=== PATIENT | male | born 1965 | race Caucasian/White ===

== ENCOUNTER 2020-06-21 10:57 | Emergency (ER) | payer OTHER ==
[~2020-06-21] VITALS: Ht 185.4 cm; Wt 99.0 kg
--- NOTE | 2020-06-21 11:12 | PHYS DOC ---
Past History Past Medical History: Hypertension Adult General Chief Complaint Chief Complaint: FLANK PAIN HPI HPI Patient is a 55-year-old male who presents with right-sided abdominal pain. Onset was this morning shortly after waking up without any known inciting event or trauma. Denies any recent travel or ingestion. Nothing known makes better, certain twisting movements of his torso and direct palpation make worse. Pain is sharp and focal to his right side of abdomen with mild radiation into lower right quadrant. Timing of symptoms has been constant, currently rates the pain 8/10 in severity. No fever, no COVID-19 contact, denies any chest pain, shortness of breath, cough, nausea vomit diarrhea, no history of constipation, no changes in bladder or bowel function, no changes in motor or sensory function. Patient denies any previous abdominal surgeries Review of Systems Review of Systems Fourteen body systems of review of systems have been reviewed. See HPI for pertinent positives and negative responses, other johnson all other systems are negative, non-pertinent or non-contributory Physical Exam Physical Exam Constitutional: Well developed, well nourished, no acute distress, non-toxic appearance. HENT: Normocephalic, atraumatic, bilateral external ears normal, oropharynx moist, no oral exudates, nose normal. Eyes: PERRLA, EOMI, conjunctiva normal, no discharge. Neck: Normal range of motion, no tenderness, supple, no stridor. Cardiovascular: Heart rate regular, sinus rhythm, no murmurs rubs or gallops Lungs & Thorax: Bilateral breath sounds clear to auscultation Abdomen: Bowel sounds normal, soft, tenderness to palpation of right lower quadrant. Negative Fofana sign, positive McBurney point, no masses, no pulsatile masses. Patient has voluntary guarding without rebound Skin: Warm, dry, no erythema, no rash. Back: No tenderness, right CVA tenderness Extremities: No tenderness, no cyanosis, no clubbing, ROM intact, no edema. Neurologic: Alert and oriented X 3, grossly normal motor & sensory function, no focal deficits noted. Psychologic: Affect normal, judgement normal, mood normal. Current Patient Data Vital Signs Vital Signs Date Time Temp Pulse Resp B/P (MAP) Pulse Ox O2 Delivery O2 Flow Rate FiO2 06/21/20 13:54 22 97 06/21/20 13:14 18 97 Room Air 1/6/21 13:13 98 136/86 06/21/20 13:09 89 18 136/86 (103) 98 Room Air 06/21/20 11:09 97.7 108 22 125/98 (107) 98 Lab Results Laboratory Tests Test 06/21/20 11:11 06/21/20 11:35 Urine Collection Type Unknown Urine Color Yellow Urine Clarity Clear Urine pH 5.0 Urine Specific [place] 1.020 Urine Protein Neg Urine Glucose (UA) Neg mg/dL Urine Ketones (Stick) Neg mg/dL Urine Blood Neg Urine Nitrite Neg Urine Bilirubin Neg Urine Urobilinogen Dipstick 0.2 mg/dL Urine Leukocyte Esterase Neg Urine RBC Occ /HPF Urine WBC Occ /HPF Urine Squamous Epithelial Cells Few /LPF Urine Bacteria Few /HPF White Blood Count 9.7 x10^3/uL Red Blood Count 5.38 x10^6/uL Hemoglobin 15.7 g/dL Hematocrit 45.8 % Mean Corpuscular Volume 85 fL Mean Corpuscular Hemoglobin 29 pg Mean Corpuscular Hemoglobin Concent 34 g/dL Red Cell Distribution Width 13.2 % Platelet Count 267 x10^3/uL Neutrophils (%) (Auto) 76 % Lymphocytes (%) (Auto) 13 % Monocytes (%) (Auto) 8 % Eosinophils (%) (Auto) 2 % Basophils (%) (Auto) 1 % Neutrophils # (Auto) 7.3 x10^3uL Lymphocytes # (Auto) 1.3 x10^3/uL Monocytes # (Auto) 0.8 x10^3/uL Eosinophils # (Auto) 0.2 x10^3/uL Basophils # (Auto) 0.1 x10^3/uL Sodium Level 138 mmol/L Potassium Level 4.0 mmol/L Chloride Level 103 mmol/L Carbon Dioxide Level 24 mmol/L Anion Gap 11 Blood Urea Nitrogen 12 mg/dL Creatinine 1.0 mg/dL Estimated GFR (Cockcroft-Gault) 77.9 BUN/Creatinine Ratio 12 Glucose Level 134 mg/dL Calcium Level 8.8 mg/dL Total Bilirubin 0.5 mg/dL Aspartate Amino Transf (AST/SGOT) 20 U/L Alanine Aminotransferase (ALT/SGPT) 55 U/L Alkaline Phosphatase 59 U/L Troponin I Quantitative < 0.017 ng/mL Total Protein 7.7 g/dL Albumin 3.8 g/dL Albumin/Globulin Ratio 1.0 Lipase 177 U/L Current Medications Medications (Trade) Dose Ordered Sig/Brook Route PRN Reason Start Time Stop Time Status Last Admin Dose Admin Morphine Sulfate (Morphine 4mg Syringe) 4 mg 1X ONCE IV 06/21/20 12:30 06/21/20 12:31 DC 06/21/20 13:14 Iohexol (Omnipaque 300 Mg/ml) 75 ml 1X ONCE IV 06/21/20 12:30 06/21/20 12:31 DC 06/21/20 12:36 Info (Do NOT chart on this entry -- for MONITORING) 1 each PRN DAILY PRN MC SEE COMMENTS 06/21/20 12:30 06/23/20 12:29 Hydralazine HCl (Apresoline) 10 mg 1X ONCE IV 06/21/20 12:45 06/21/20 12:59 DC 06/21/20 13:13 Morphine Sulfate (Morphine 4mg Syringe) 4 mg 1X ONCE IV 06/21/20 12:45 06/21/20 12:59 DC 06/21/20 13:54 EKG EKG EKG ordered and interpreted by myself at 1300 hrs. as sinus rhythm at 94 bpm, unremarkable intervals, no axis deviation, findings in inferior leads II, III and aVF consistent with Q waves from prior infarct no acute ischemic findings, no STEMI Radiology/Procedures Radiology/Procedures EXAM: Chest, single view. HISTORY: Flank pain. COMPARISON: None. FINDINGS: A frontal view of the chest is obtained. There is no infiltrate, pleural effusion or pneumothorax. The heart is normal in size. There is cervical spinal fusion instrumentation. There is a right shoulder arthroplasty and evidence of prior distal right clavicular resection. IMPRESSION: No acute pulmonary finding. Electronically signed by: Jessica Oneal MD (06/21/2020 12:59 PM) [id number] EXAM: Abdomen and pelvis CT with intravenous contrast. HISTORY: Right flank pain. TECHNIQUE: Computed tomographic images of the abdomen and pelvis were obtained following the administration of intravenous contrast. Multiplanar reformatting was performed. *One or more of the following individualized dose reduction techniques were utilized for this examination: 1. Automated exposure control. 2. Adjustment of the mA and/or kV according to patient size. 3. Use of iterative reconstruction technique. COMPARISON: None. FINDINGS: Evaluation of the lower thorax demonstrates no infiltrate, pleural effusion or pulmonary nodule. There are a few hepatic granulomas. There is a small focus of nodularity along the anterior left hepatic capsule, benign in appearance. The gallbladder, pancreas and adrenal glands are unremarkable there are splenic granulomas. The stomach is unremarkable. There is a punctate nonobstructing stone within the lower mid zone of the left kidney. There is no hydronephrosis. No suspicious renal lesion is seen. The bladder is unremarkable. There is a dilated appendix with surrounding stranding and trace fluid consistent with acute appendicitis. There is a superimposed appendicolith. No drainable fluid collection or free air is seen. The aorta is normal in caliber. There is no lymphadenopathy. There is degenerative change involving the lower thoracic spine. There are few endplate Schmorl's nodes. There is a suspected bone island within the anterior aspect of T11. IMPRESSION: 1. Acute appendicitis. No drainable abscess or free air is seen. 2. Punctate nonobstructing left renal stone. Electronically signed by: Jessica Oneal MD (06/21/2020 12:58 PM) [id number] Heart Score HEART Score for Chest Pain: HEART Score for Chest Pain Response (Comments) Value History Slighlty/Non-Suspicious 0 ECG Normal 0 Age >45 - < 65 1 Risk Factors 1 or 2 Risk Factors 1 Troponin < Normal Limit 0 Total 2 Risk Factors: Risk Factors: DM, Current or recent (<one month) smoker, HTN, HLP, family history of CAD, obesity. Risk Scores: Risk Factors: DM, Current or recent (<one month) smoker, HTN, HLP, family history of CAD, obesity. Course & Med Decision Making Course & Med Decision Making Pertinent Labs and Imaging studies reviewed. (See chart for details) Discussed most likely diagnosis of acute appendicitis. I discussed need for transfer to facility with surgery capabilities I called [facility] and discussed case with Dr. Dumont who agreed need for transfer for surgical removal. I also talked to hospitalist, Dr. Barillas, who agreed to accept patient under his care at [facility] I updated patient on proposed plan of care for transfer, admission for continued pain control, IV antibiotics and plan for surgical removal of his appendix tomorrow morning. Patient was agreeable Patient stabilized satisfactorily. All questions and concerns addressed prior to ER transportation to [facility] Critical Care Time This patient required critical care. Due to the fact that the patient required a significant amount of one on one physician - patient contact time, ordering and review of studies, arranging urgent treatment with development of a management plan, evaluation of patients response to treatment with frequent reassessments, and discussions with other providers this patient required critical care time in excess of 30 minutes. Critical care time was indicated due to the inherent instability and/or potential for instability in this patient. The critical care time that is allocated to this patient is above and beyond any time spent on any other billable procedures performed on this patient. Dragon Disclaimer Dragon Disclaimer This electronic medical record was generated, in whole or in part, using a voice recognition dictation system. Departure Departure: Impression: Primary Impression: Appendicitis Disposition: 02 DC/TRF OTHER SHORT TERM HOS ([facility]) Admitting Physician: Other (DR BARILLAS) Condition: STABLE Referrals: JEEVAN AGUIRRE MD (PCP) GILDA PATEL DO Jun 21, 2020 11:12
[2020-06-21 11:59] LABS: BASO # 0.1 x10^3/uL (0.0-0.2); BASO % 1 % (0-3); EOS # 0.2 x10^3/uL (0.0-0.7); EOS % 2 % (0-3); HEMATOCRIT 45.8 % (39.0-53.0); HEMOGLOBIN 15.7 g/dL (13.0-17.5); LYMPH # 1.3 x10^3/uL (1.0-4.8); LYMPH % 13 % (24-48); MEAN CORPUSCULAR HEMOGLOBIN 29 pg (25-35); MEAN CORPUSCULAR HGB CONC 34 g/dL (31-37); MEAN CORPUSCULAR VOLUME 85 fL (79-100); MONO # 0.8 x10^3/uL (0.0-1.1); MONO % 8 % (0-9); NEUT # 7.3 x10^3uL (1.8-7.7); NEUT % 76 % (31-73); PLATELET COUNT 267 x10^3/uL (140-400); RED BLOOD COUNT 5.38 x10^6/uL (4.30-5.70); RED CELL DISTRIBUTION WIDTH 13.2 % (11.5-14.5); WHITE BLOOD COUNT 9.7 x10^3/uL (4.0-11.0)
[2020-06-21 12:15] LABS: CALCIUM 8.8 mg/dL (8.5-10.1); GFR 77.9
[2020-06-21 12:18] LABS: ALBUMIN 3.8 g/dL (3.4-5.0); TOTAL BILIRUBIN 0.5 mg/dL (0.2-1.0); TOTAL PROTEIN 7.7 g/dL (6.4-8.2)
[2020-06-21 12:22] LABS: BILIRUBIN,URINE NEG (NEG); CLARITY,URINE CLEAR; COLOR,URINE YELLOW; GLUCOSE,URINE NEG (NEG)
[2020-06-21 12:23] LABS: BACTERIA,URINE FEW /HPF (0-FEW); NITRITE,URINE NEG (NEG); RBC,URINE OCC /HPF (0-2); SQUAMOUS EPITHELIAL CELL,UR FEW /LPF; UROBILINOGEN,URINE 0.2 mg/dL (0.2 mg/dL); WBC,URINE OCC /HPF (0-4)
[2020-06-21] MEDS ORDERED: CONTRAST GIVEN. MC PRN (12:30)
[2020-06-21] MEDS ORDERED: MORPHINE SULFATE 4 MG/ML DISP.SYRIN. IV ONE (12:30)
[2020-06-21] MEDS ORDERED: IOHEXOL 300 MG/ML 75 ML VIAL. IV ONE (12:30)
[2020-06-21] MEDS ORDERED: hydrALAZINE 20 MG/ML VIAL. IV ONE (12:45)
[2020-06-21] MEDS: MORPHINE SULFATE 4 MG/ML DISP.SYRIN. IV ONE ×2 (12:45→13:54)
--- NOTE | 2020-06-21 13:01 | RAD ---
EXAM: Abdomen and pelvis CT with intravenous contrast. HISTORY: Right flank pain. TECHNIQUE: Computed tomographic images of the abdomen and pelvis were obtained following the administ ration of intravenous contrast. Multiplanar reformatting was performed. *One or more of the following individualized dose reduction techniques were utilized for this examina tion: 1. Automated exposure control. 2. Adjustment of the mA and/or kV according to patient size. 3. Use of iterative reconstruction technique. COMPARISON: None. FINDINGS: Evaluation of the lower thorax demonstrates no infiltrate, pleural effusion or pulmonary no dule. There are a few hepatic granulomas. There is a small focus of nodularity along the anterior lef t hepatic capsule, benign in appearance. The gallbladder, pancreas and adrenal glands are unremarkabl e there are splenic granulomas. The stomach is unremarkable. There is a punctate nonobstructing stone within the lower mid zone of the left kidney. There is no hy dronephrosis. No suspicious renal lesion is seen. The bladder is unremarkable. There is a dilated appendix with surrounding stranding and trace fluid consistent with acute appendic itis. There is a superimposed appendicolith. No drainable fluid collection or free air is seen. The a jaiden is normal in caliber. There is no lymphadenopathy. There is degenerative change involving the lo wer thoracic spine. There are few endplate Schmorl's nodes. There is a suspected bone island within t he anterior aspect of T11. IMPRESSION: 1. Acute appendicitis. No drainable abscess or free air is seen. 2. Punctate nonobstructing left renal stone. Electronically signed by: Jessica Oneal MD (06/21/2020 12:58 PM) [id number]
--- NOTE | 2020-06-21 13:01 | RAD ---
EXAM: Chest, single view. HISTORY: Flank pain. COMPARISON: None. FINDINGS: A frontal view of the chest is obtained. There is no infiltrate, pleural effusion or pneumo thorax. The heart is normal in size. There is cervical spinal fusion instrumentation. There is a righ t shoulder arthroplasty and evidence of prior distal right clavicular resection. IMPRESSION: No acute pulmonary finding. Electronically signed by: Jessica Oneal MD (06/21/2020 12:59 PM) [id number]
[2020-06-21 14:21] LABS: BILIRUBIN,URINE NEG (NEG); CLARITY,URINE CLEAR; COLOR,URINE YELLOW; GLUCOSE,URINE NEG (NEG); NITRITE,URINE NEG (NEG); UROBILINOGEN,URINE 0.2 mg/dL (0.2 mg/dL)
[2020-06-21 14:22] LABS: BACTERIA,URINE 0 /HPF (0-FEW); RBC,URINE 0 /HPF (0-2); WBC,URINE 0 /HPF (0-4)
--- NOTE | 2020-06-21 14:59 | EKG ---
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
[2020-06-21] MEDS ORDERED: HYDROmorphone PF 1 MG/ML DISP.SYRIN IVP ONE ×2 (15:30→19:30)
[2020-06-21] MEDS ORDERED: IV NORMAL SALINE 1,000ML 1,000 ML IV ONE (15:30)
[2020-06-21 18:10] VITALS: BP 128/85
[2020-06-21] MEDS ORDERED: ONDANSETRON PF 4 MG/2 ML VIAL. IVP ONE (19:30)
== END 2020-06-21 20:04 | disposition short-term general hospital (02) ==
LOC: ER 10:57
DX: K37 Unspecified appendicitis (principal); I10 Essential (primary) hypertension; Z20.828 Contact with and (suspected) exposure to other viral communicable diseases
CPT/HCPCS: 36415; 71045; 74177; 80053; 81001; 83690; 84484; 85025; 87426; 93005; 96361; 96374; 96375; 96376; 99285; C9803; J0360; J1170; J2270; J2405; J7030; Q9967; U0003

== ENCOUNTER → 2021-04-23 | Outpatient (CLI) | payer OTHER ==
[~2021-04-23] MED LIST: IOHEXOL 240 MG/ML 50ML VIAL. ONE; IOHEXOL 300 MG/ML 75 ML VIAL. IV ONE
[2021-04-23 08:26] LABS: GFR 77.9
--- NOTE | 2021-04-23 09:41 | RAD ---
EXAM: CT Abdomen and Pelvis with IV contrast CLINICAL HISTORY: Reason: EXCISIONAL HERNIA AFTER APPENDECTOMY, ABDOMINAL PAIN COMPARISON: none TECHNIQUE: Helical CT of the abdomen and pelvis was performed following the administration of intrave nous contrast. Axial, coronal and sagittal reformatted images were generated. PQRS compliance statement - One or more of the following individualized dose reduction techniques wer e utilized for this study: 1. Automated exposure control 2. Adjustment of the mA and/or kV according to patient size 3. Use of iterative reconstruction technique FINDINGS: Lower Chest: Lung bases are clear. Abdomen and Pelvis: Hepatic hypoattenuation, fatty liver. Calcified granuloma are seen within the liver and spleen. Adren al glands, pancreas and gallbladder are normal. No biliary ductal dilatation. Symmetric nephrograms. No focal renal lesion. No hydronephrosis. Punctate nonobstructing left lower p ole renal calculus. No hydronephrosis. No hydroureter. Bladder is unremarkable. Appendectomy changes are seen. Moderate colonic stool content is seen. No small or large bowel dilatation. No bowel obstru ction. A series of at least 4 fat-containing supraumbilical hernias are seen with mild associated infiltrati on. The superiormost hernia has a base measuring 1.1 cm approximately 4 cm cephalad to the umbilicus. No abdominal or pelvic ascites. No abdominal or pelvic lymphadenopathy. Moderate colonic stool conten t is seen. No small or large bowel dilatation. No bowel obstruction. Bones: Osseous structures are grossly stable. IMPRESSION: 1. A series of 4 ventral/supraumbilical hernias are seen containing fat although associated infiltra tion is seen suggesting symptomatic hernias. 2. There has been an appendectomy. 3. Moderate colonic stool content. No bowel obstruction. 4. Hepatic hypoattenuation, fatty liver. 5. Nonobstructing punctate left lower pole renal calculus. Electronically signed by: Dominick Goncalves MD (04/23/2021 9:39 AM) [facility]
== END ==
LOC: CT 07:32
PROVIDERS: ATTEND Surgery
DX: K43.9 Ventral hernia without obstruction or gangrene (principal); N20.0 Calculus of kidney; K75.3 Granulomatous hepatitis, not elsewhere classified; K76.0 Fatty (change of) liver, not elsewhere classified; D73.89 Other diseases of spleen
CPT/HCPCS: 36415; 74177; 82565; 84520; Q9967